=== PATIENT | male | born 1985 | race Caucasian/White ===

== ENCOUNTER 2018-12-21 17:43 | Emergency (ER) | payer OTHER ==
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
[2018-12-21 18:41] VITALS: BP 141/86
== END 2018-12-21 19:35 | disposition home or self-care (01) ==
LOC: EDUNIT#
DX: T23.111A Burn of first degree of right thumb (nail), initial encounter (principal); T31.0 Burns involving less than 10% of body surface; R07.9 Chest pain, unspecified; V89.9XXA Person injured in unspecified vehicle accident, initial encounter; Y92.9 Unspecified place or not applicable; Y93.9 Activity, unspecified; Y99.9 Unspecified external cause status; Z88.0 Allergy status to penicillin